=== PATIENT | male | born 1950 | race Caucasian/White ===

== ENCOUNTER 2022-07-12 12:05 | Inpatient (IN) | payer MEDICARE, MEDICAID ==
[~2022-07-12] VITALS: Ht 188 cm; Wt 99.8 kg
[2022-07-12 05:45] VITALS: BP 106/68
--- NOTE | 2022-07-12 12:15 | NUR ---
BIB PA FRM CORRECTION C/O BILATERAL ELBOW PAIN S/O GLF YESTERDAY. PT ALSO C/O COUGH AND CONGESTION X 2 DAYS. PLACED ON BED, AAOX4, TACHPNEIC RR- 26 SATURATING AT 95%RA.
--- NOTE | 2022-07-12 12:32 | NUR ---
PATIENT TAKEN TO CT VIA ELIE
[2022-07-12] MEDS ORDERED: ATOR10TA PO (12:39)
[2022-07-12] MEDS ORDERED: ZOLP10TA2 PO (12:39)
[2022-07-12] MEDS ORDERED: POLY17PO4 PO (12:39)
[2022-07-12] MEDS ORDERED: ASPI-1169 PO (12:39)
[2022-07-12] MEDS ORDERED: TYL2T PO (12:39)
[2022-07-12] MEDS ORDERED: CELE-85 PO (12:39)
[2022-07-12] MEDS ORDERED: PANT40TA2 PO (12:39)
[2022-07-12] MEDS ORDERED: MAGN400O6 PO (12:39)
[2022-07-12] MEDS ORDERED: ACET-868 PO (12:39)
[2022-07-12] MEDS ORDERED: GABA-532 PO (12:39)
[2022-07-12] MEDS ORDERED: MAG30ORA PO (12:39)
[2022-07-12] MEDS ORDERED: PROM118S PO (12:39)
[2022-07-12] MEDS ORDERED: SENN-261 PO (12:39)
[2022-07-12] MEDS ORDERED: CLOZ200T PO (12:39)
[2022-07-12] MEDS ORDERED: CLOZ100T32 PO (12:39)
[2022-07-12] MEDS ORDERED: LEVO100T9 PO (12:39)
--- NOTE | 2022-07-12 13:00 | NUR ---
PET NUTRITION SPECIALIST AT BEDSIDE, SWAB FOR COVID19 AND RAPID INFLUENZA SENT TO LAB.
[2022-07-12 13:18] LABS: BASOPHILS % (AUTO) 0.3 % (0.0-2.0); HEMATOCRIT 37 % (39-51); HEMOGLOBIN 11.6 g/dL (13.5-17.5); LYMPHOCYTES # (AUTO) 1.3 K/uL (0.8-4.8); LYMPHOCYTES % (AUTO) 9.7 % (20.0-44.0); MEAN CORPUSCULAR HGB CONC 31 g/dl (31.0-36.0); MEAN CORPUSCULAR VOLUME 86 fL (80-96); MONOCYTES # (AUTO) 1.1 K/uL (0.1-1.30); MONOCYTES % (AUTO) 7.9 % (2.0-12.0); NEUTROPHILS # (AUTO) 11.3 K/uL (1.8-8.9); NEUTROPHILS % (AUTO) 82.1 % (43.0-81.0); PLATELET COUNT (AUTO) 225 K/uL (150-450); RED BLOOD CELL COUNT(AUTO) 4.29 MIL/uL (4.5-6.0); WHITE BLOOD COUNT (AUTO) 13.8 K/uL (4.3-11.0)
[2022-07-12 13:45] LABS: CREATININE 1.4 mg/dL (0.6-1.3); POTASSIUM 4.3 mmol/L (3.5-5.1)
--- NOTE | 2022-07-12 14:32 | NUR ---
COVID POSITIVE RESULT RELAYED BY OFFICER CAPTAIN, LAYLA ESPINO AWARE
[2022-07-12] MEDS ORDERED: IBUPROFEN 600 MG TABLET ONE (14:55)
--- NOTE | 2022-07-12 15:07 | NUR ---
MOVE SHEET SUBMITTED
--- NOTE | 2022-07-12 15:18 | NUR ---
[facility] PAGED
[2022-07-12] MEDS ORDERED: MAG HYDROX/AL HYDROX/SIMETH 30 ML UDC PO PRN (16:00)
[2022-07-12] MEDS ORDERED: ONDANSETRON HCL/PF 4 MG/2 ML VIAL IVP PRN (16:00)
[2022-07-12] MEDS ORDERED: IBUPROFEN 600 MG TABLET PO ONE (16:00)
[2022-07-12] MEDS ORDERED: MORPHINE SULFATE INJ 2 MG/ML DISP.SYRIN IV PRN (16:00)
[2022-07-12] MEDS ORDERED: MAGNESIUM HYDROXIDE 30 ML UDC PO PRN (16:00)
--- NOTE | 2022-07-12 16:05 | NUR ---
room 108
--- NOTE | 2022-07-12 16:59 | NUR ---
REPORT GIVEN TO AB WRIGHT ROOM 108 FOR SLIM
[2022-07-12] MEDS: IPRATROPIUM/ALBUTEROL INHALER IH SCH ×2 (18:00→23:47)
--- NOTE | 2022-07-12 18:59 | NUR ---
RN NOTE PATIENT ARRIVED FROM ED AT 1830. PATIENT IS AOX4, TELE READING AT THIS TIME SR 89. VITALS TAKEN: BP: 106/68, HR: 92. ORAL TEMP: 98.3. BREATHING ON 2L NC AT 92% RR: 20. IV ACCESS RW #20 SL. PICTURES TAKEN AND PLACED IN CHART. PATIENT BELONGINGS ACCOUNTED FOR. WILL ENDORSE CONTINUITY OF CARE TO GALLERY OR MUSEUM CURATOR NURSE.
[2022-07-12] MEDS: DEXAMETHASONE SOD PHOSPHATE 10 MG/ML VIAL IV SCH (19:06)
[2022-07-12] MEDS: GABAPENTIN 100 MG CAPSULE PO SCH (19:06)
--- NOTE | 2022-07-12 19:30 | NUR ---
PATIENT AWAKE. AOX4, ON TELE MONITOR READING SR AT THIS TIME. ON 2LPM VIA NC. IV ACCESS ON RW #20 ON SL. SAFETY MEASURES IN PLACE. WILL CONTINUE PLAN OF CARE.
[2022-07-12 20:00] VITALS: BP 114/67
[2022-07-12 20:33] LABS: BILIRUBIN,DIRECT 0.2 mg/dL (0.0-0.2); BILIRUBIN,TOTAL 0.6 mg/dL (0.2-1.0)
[2022-07-12] MEDS: CEFEPIME 2 GM in IV D5W 100 ML IV SCH (21:25)
[2022-07-12] MEDS: HEPARIN SODIUM, PORCINE 5000 UNITS/1 ML VIAL SQ SCH (21:26)
[2022-07-12] MEDS: ATORVASTATIN 10 MG TABLET PO SCH (21:27)
[2022-07-12] MEDS: CLOZAPINE 100 MG TABLET PO SCH (21:27)
[2022-07-13] VITALS: BP 120/69
--- NOTE | 2022-07-13 | NUR ---
Pt not in distress with an o2 sat of 88% to 89%, increased o2 level from 3 Lpm to 5 Lmp.
[2022-07-13 04:00] VITALS: BP 128/73
--- NOTE | 2022-07-13 04:45 | NUR ---
Pt resting comfortably and not in distress. No complaints with an o2 sat of 89%. Charge nurse informed. O2 level increased to 10 Lpm via simple mask as ordered.
[2022-07-13] MEDS: IPRATROPIUM/ALBUTEROL INHALER IH SCH ×4 (05:08→23:53)
--- NOTE | 2022-07-13 06:47 | NUR ---
PT ASLEEP AOX4, ON TELE MONITOR READING SR . ON 10LPM VIA SIMPLE MASK, OS SAT AT 95% AT THIS TIME. IV ACCESS ON RW #20 ON SL. DUE MEDS GIVEN ORDERED. NEEDS ATTENDED. SAFETY MEASURES MAINTAINED. WILL ENDORSE TO NEXT NURSE ON DUTY FOR CONTINUITY OF CARE.
[2022-07-13 07:18] LABS: BASOPHILS % (AUTO) 0.1 % (0.0-2.0); HEMATOCRIT 35 % (39-51); HEMOGLOBIN 11.5 g/dL (13.5-17.5); LYMPHOCYTES # (AUTO) 0.5 K/uL (0.8-4.8); MEAN CORPUSCULAR HGB CONC 33 g/dl (31.0-36.0); MEAN CORPUSCULAR VOLUME 84 fL (80-96); MONOCYTES # (AUTO) 0.5 K/uL (0.1-1.30); NEUTROPHILS # (AUTO) 6.3 K/uL (1.8-8.9); NEUTROPHILS % (AUTO) 85.9 % (43.0-81.0); PLATELET COUNT (AUTO) 229 K/uL (150-450); RED BLOOD CELL COUNT(AUTO) 4.15 MIL/uL (4.5-6.0); WHITE BLOOD COUNT (AUTO) 7.3 K/uL (4.3-11.0)
[2022-07-13] MEDS: PANTOPRAZOLE 40 MG TABLET.DR PO SCH (07:57)
[2022-07-13] MEDS: LEVOTHYROXINE SODIUM 100 MCG TABLET PO SCH (07:57)
[2022-07-13 07:58] LABS: ALBUMIN 3.1 g/dL (3.4-5.0); BILIRUBIN,TOTAL 0.6 mg/dL (0.2-1.0); CALCIUM, SERUM 7.9 mg/dL (8.5-10.1); MAGNESIUM 2.4 mg/dL (1.8-2.4); PHOSPHORUS 2.7 mg/dL (2.5-4.9); POTASSIUM 3.8 mmol/L (3.5-5.1); TOTAL PROTEIN, SERUM 6.7 g/dL (6.4-8.2)
[2022-07-13 08:00] VITALS: BP 125/72
[2022-07-13] MEDS: CEFEPIME 2 GM in IV D5W 100 ML IV SCH ×2 (08:06→21:02)
[2022-07-13] MEDS: DEXAMETHASONE SOD PHOSPHATE 10 MG/ML VIAL IV SCH (08:06)
[2022-07-13] MEDS: GABAPENTIN 100 MG CAPSULE PO SCH ×3 (08:06→16:14)
[2022-07-13] MEDS: SENNOSIDES 8.6 MG TABLET PO SCH (08:06)
[2022-07-13] MEDS: POLYETHYLENE GLYCOL 3350 17 GM POWD.PACK PO SCH (08:06)
[2022-07-13] MEDS: ASPIRIN 81 MG TAB.CHEW PO SCH (08:06)
[2022-07-13] MEDS: CLOZAPINE 100 MG TABLET PO SCH ×2 (08:08→21:07)
[2022-07-13] MEDS: HEPARIN SODIUM, PORCINE 5000 UNITS/1 ML VIAL SQ SCH ×2 (08:21→21:05)
--- NOTE | 2022-07-13 08:50 | NUR ---
HIGHWAY ADMINISTRATIVE ENGINEER OPENING NOTES PATIENT AWAKE, ALERT AND VERBALLY RESPONSIVE, NOTED ON SIMPLE MASK @10LPM NOTED 02 SAT 94%, NOTED AUDIBLE CRACKLES, NOT IN DISTRESS, DENIES ANY PAIN, ON TELE MONITOR READING ST HR 106, IV ACCESS ON RW NOTED DISLODGED, WILL INSERT A NEW ONE. URINAL AT THE BEDSIDE, SAFETY MEASURES MAINTAINED.CALL LIGHT WITHIN REACH, BED ALARM. NOTED LEFT ARM SLING NOTED INTACT. PLAN OF CARE ON GOING.
--- NOTE | 2022-07-13 09:38 | NUR ---
REGULATOR PIN INSERTER RN NOTES INFORMED DR. VILLASENOR PATIENT ON SIMPLE MASK 10L, MD ORDER TITRATE 02 TO MAINTAINED 02 SAT ABOVE 90%, CHANGED SIMPLE MASK TO NASAL CANNULA TO 5L NOTED 02 SAT 93-94%. PLAN OF CARE ONGOING.
[2022-07-13] MEDS: GUAIFENESIN 300 MG/15 ML UDC PO PRN (10:36)
[2022-07-13 12:00] VITALS: BP 109/73
[2022-07-13] MEDS: SCOPOLAMINE PATCH 1 MG/72HR TD SCH (13:04)
[2022-07-13] MEDS: ACETAMINOPHEN 325 MG TABLET PO PRN (16:33)
[2022-07-13 16:55] VITALS: BP 129/70
--- NOTE | 2022-07-13 16:58 | NUR ---
METAL REED TUNER NOTES ULTRASOUND OF BILATERL LE, RESULT RECEIVED, DR. CHARLES NOTIFIED, AWAITING FOR ORDERS. PLAN OF CARE CONTINUED.
--- NOTE | 2022-07-13 18:25 | NUR ---
DEPUTY DIRECTOR OF NURSING NOTES DR. OLIVIER NOTIFIED OF THE ULTRASOUND WITH ORDER TO CONTINUE HEPARIN NOTED AND CARRIED OUT.
--- NOTE | 2022-07-13 18:39 | NUR ---
TILESETTER NOTES CALLED XRAY, TO FOLLOW UP PT NEEDS TO GO TO CT, PER REGULATORY ATTORNEY, THEY'RE BUSY WITH ER PATIENTS AND WILL TRY TO CALL BACK AGAIN LATER.
--- NOTE | 2022-07-13 18:40 | NUR ---
LADLE HANDLER CLOSING NOTES PATIENT AWAKE, ALERT AND VERBALLY RESPONSIVE, NOTED ON 5L VIA NASAL CANNULA SATING AT 94-95%, NOT IN DISTRESS, NO SHORTNESS OF BREATH, CRACKLES STILL NOTED., DENIES ANY PAIN. IV ACCESS ON RIGHT FOREARM NOTED PATENT AND INTACT, FLUSHES WELL. URINAL AT THE BEDSIDE, SAFETY MEASURES MAINTAINED.CALL LIGHT WITHIN REACH, BED ALARM. NOTED LEFT ARM SLING NOTED INTACT.WILL ENDORSE TO NIGHT NURSE FOR SLIM. Addendum: 07/13/22 at 1927 by TILA RODRIGUEZ RN RECHECK TEMP AFTER GIVING TYLENOL 99.1, ENDORSE TO STEAM BOX OPERATOR NURSE
--- NOTE | 2022-07-13 19:30 | NUR ---
PT ASLEEP, EASILY AWAKEN BY CALLING HIS NAME. A/OX4, ON 02 VIA NC AT 6LPM, NOTED AUDIBLE CRACKLES, NOT IN DISTRESS, DENIES ANY PAIN, ON TELE MONITOR READING SR, HR AT 98, IV ACCESS ON RFA #22G ON SL. URINAL AT THE BEDSIDE, SAFETY MEASURES IN PLACE. WILL CONTINUE PLAN OF CARE.
[2022-07-13 20:00] VITALS: BP 132/80
[2022-07-13] MEDS: ATORVASTATIN 10 MG TABLET PO SCH (21:08)
[2022-07-14] VITALS: BP 125/73
[2022-07-14 04:00] VITALS: BP 138/73
--- NOTE | 2022-07-14 06:55 | NUR ---
PT ASLEEP, EASILY AWAKEN BY CALLING HIS NAME. A/OX4, ON 02 VIA NC AT 5LPM, NOTED AUDIBLE CRACKLES, NOT IN DISTRESS, NO SOB AND DENIES ANY PAIN, ON TELE MONITOR READING SR, HR AT 98, IV ACCESS ON RFA #22G ON SL. URINAL AT THE BEDSIDE. DUE MEDS GIVEN ORDERED. SAFETY MEASURES MAINTAINED. WILL ENDORSE TO NEXT NURSE ON DUTY FOR CONTINUITY OF CARE.
[2022-07-14 07:43] LABS: ALBUMIN 2.7 g/dL (3.4-5.0); BILIRUBIN,DIRECT 0.1 mg/dL (0.0-0.2); BILIRUBIN,TOTAL 0.4 mg/dL (0.2-1.0); TOTAL PROTEIN, SERUM 6.5 g/dL (6.4-8.2)
[2022-07-14 08:00] VITALS: BP 120/76
[2022-07-14] MEDS: CEFEPIME 2 GM in IV D5W 100 ML IV SCH ×2 (08:13→21:01)
[2022-07-14] MEDS: ASPIRIN 81 MG TAB.CHEW PO SCH (08:13)
[2022-07-14] MEDS: GABAPENTIN 100 MG CAPSULE PO SCH ×3 (08:13→16:11)
[2022-07-14] MEDS: PANTOPRAZOLE 40 MG TABLET.DR PO SCH (08:14)
[2022-07-14] MEDS: CLOZAPINE 100 MG TABLET PO SCH (08:14)
[2022-07-14] MEDS: LEVOTHYROXINE SODIUM 100 MCG TABLET PO SCH (08:14)
[2022-07-14] MEDS: SENNOSIDES 8.6 MG TABLET PO SCH (08:14)
[2022-07-14] MEDS: POLYETHYLENE GLYCOL 3350 17 GM POWD.PACK PO SCH (08:14)
[2022-07-14] MEDS: HEPARIN SODIUM, PORCINE 5000 UNITS/1 ML VIAL SQ SCH ×2 (08:23→21:04)
--- NOTE | 2022-07-14 08:30 | NUR ---
FIRE ALARM DISPATCHER OPENING NOTES PATIENT AWAKE, ALERT AND VERBALLY RESPONSIVE, NOTED ON 2L VIA NASAL CANNULA TOLERATING WELL, NOT IN DISTRESS, NO SHORTNESS OF BREATH. DENIES ANY PAIN. IV ACCESS ON RIGHT FOREARM NOTED PATENT AND INTACT, FLUSHES WELL. URINAL AT THE BEDSIDE, SAFETY MEASURES MAINTAINED.CALL LIGHT WITHIN REACH, BED ALARM. NOTED LEFT ARM SLING NOTED INTACT.PLAN OF CARE CONTINUED.
[2022-07-14] MEDS: DEXAMETHASONE SOD PHOSPHATE 10 MG/ML VIAL IV SCH (08:41)
--- NOTE | 2022-07-14 09:55 | NUR ---
WOUND CARE CONSULT: REVIEWED CHART, NURSING DOCUMENTATION AND PHOTO WHICH INDICATES BILATERAL KNEE DISCOLORATION, PRESENT ON ADMISSION. CURRENT EDDIE SCORE IS 19. NURSING STAFF TO OBSERVE SKIN DAILY. MD IN AGREEMENT WITH PLAN OF CARE.
--- NOTE | 2022-07-14 10:00 | NUR ---
IT ENGINEER NOTES NOTED PATIENT RIGHT FOREAM PIV WAS REMOVED DUE TO PATIENT KEEP MOVING HIS ARMS, INFORMED MD WITH NEW ORDER FOR MIDLINE INSERTION, NOTED AND CARRIED OUT. INFORMED CHARGE NURSE AND COAL DIGGER. TESS MIDLINE WAS PLACED. NOTED PATENT AND INTACT, FLUSHES WELL.PLAN OF CARE CONTINUED.
[2022-07-14 12:00] VITALS: BP 146/74
[2022-07-14] MEDS: IPRATROPIUM/ALBUTEROL INHALER IH SCH ×3 (12:00→17:06)
[2022-07-14] MEDS: GUAIFENESIN 300 MG/15 ML UDC PO PRN (12:16)
[2022-07-14 16:00] VITALS: BP 117/87
[2022-07-14] MEDS: ACETAMINOPHEN 325 MG TABLET PO PRN (16:12)
--- NOTE | 2022-07-14 18:09 | NUR ---
PROVIDER NETWORK MANAGER CLOSING NOTES PATIENT AWAKE, ALERT AND VERBALLY RESPONSIVE, NOTED ON 2L VIA NASAL CANNULA SATING AT 97%, NOT IN DISTRESS, NO SHORTNESS OF BREATH. DENIES ANY PAIN. TESS MIDLINE NOTED PATENT AND INTACT, FLUSHES WELL. COVID ISOLATION CONTINUED. NOTED LEFT ARM SLING NOTED INTACT.ON TELE MONITORING WITH SR 79. WILL ENDORSE TO NIGHT NURSE FOR SLIM.
[2022-07-14] MEDS: ATORVASTATIN 10 MG TABLET PO SCH (21:02)
[2022-07-14 21:20] VITALS: BP 125/72
[2022-07-15] VITALS: BP 130/84
[2022-07-15] MEDS: CLOZAPINE 100 MG TABLET PO SCH ×3 (01:26→22:16)
[2022-07-15] MEDS: ALBUTEROL SULFATE 8 GM HFA.AER.AD IH PRN ×2 (01:30→06:40)
[2022-07-15 04:00] VITALS: BP 136/73
[2022-07-15] MEDS: CELECOXIB 100 MG CAPSULE PO PRN ×2 (06:42→23:23)
[2022-07-15] MEDS: IPRATROPIUM/ALBUTEROL INHALER IH SCH ×4 (06:58→22:31)
[2022-07-15] MEDS: CEFEPIME 2 GM in IV D5W 100 ML IV SCH ×2 (07:57→22:09)
[2022-07-15 08:00] VITALS: BP 142/74
[2022-07-15] MEDS: LEVOTHYROXINE SODIUM 100 MCG TABLET PO SCH (08:21)
[2022-07-15] MEDS: DEXAMETHASONE SOD PHOSPHATE 10 MG/ML VIAL IV SCH (08:21)
[2022-07-15] MEDS: PANTOPRAZOLE 40 MG TABLET.DR PO SCH (08:21)
[2022-07-15] MEDS: POLYETHYLENE GLYCOL 3350 17 GM POWD.PACK PO SCH (08:21)
[2022-07-15] MEDS: ASPIRIN 81 MG TAB.CHEW PO SCH (08:21)
[2022-07-15] MEDS: SENNOSIDES 8.6 MG TABLET PO SCH (08:21)
[2022-07-15] MEDS: GABAPENTIN 100 MG CAPSULE PO SCH ×3 (08:21→17:38)
[2022-07-15] MEDS: HEPARIN SODIUM, PORCINE 5000 UNITS/1 ML VIAL SQ SCH ×2 (08:23→22:19)
[2022-07-15 12:00] VITALS: BP 130/75
[2022-07-15 16:00] VITALS: BP 125/73
--- NOTE | 2022-07-15 19:00 | NUR ---
LIVE IN COMPANION CLOSING NOTES PATIENT AWAKE, ALERT AND VERBALLY RESPONSIVE, BREANA GUTIÉRREZ CALLED AND SAID TAKE TH NC 2 LITER OFF AND MONITOR THE PATIENT ON ROOM AIR, HE IS GOING TO BE DISCHARGE TOMORROW. PATIENT WAS SATTING 94-95% ON ROOM AIR. NOT IN DISTRESS, NO SHORTNESS OF BREATH. DENIES ANY PAIN. TESS MIDLINE NOTED PATENT AND INTACT, FLUSHES WELL. COVID ISOLATION CONTINUED. NOTED LEFT ARM SLING NOTED INTACT.ON TELE MONITORING WITH SR 78. WILL ENDORSE TO CARGO AND CONTAINER INSPECTOR NURSE FOR SLIM.
[2022-07-15 20:00] VITALS: BP 123/77
--- NOTE | 2022-07-15 20:00 | NUR ---
CLAIM AUDITOR OPENING NOTES PATIENT AWAKE, ALERT AND VERBALLY RESPONSIVE, NOTED ON R/A SATING AT 96%, NOT IN DISTRESS, NO SHORTNESS OF BREATH, DENIES ANY PAIN. IV ACCESS ON RIGHT FOREARM NOTED PATENT AND INTACT, FLUSHES WELL. URINAL AT THE BEDSIDE, SAFETY MEASURES MAINTAINED.CALL LIGHT WITHIN REACH, BED ALARM. NOTED LEFT ARM SLING NOTED INTACT.WILL CONTINUE TO MONITOR PTS.
[2022-07-15] MEDS: ATORVASTATIN 10 MG TABLET PO SCH (22:16)
[2022-07-16] VITALS: BP_SYST 134; BP_DIAS 64; BP_DIAS 77
[2022-07-16] MEDS: IPRATROPIUM/ALBUTEROL INHALER IH SCH ×3 (00:50→12:05)
[2022-07-16 04:00] VITALS: BP 137/85
--- NOTE | 2022-07-16 06:25 | NUR ---
telecasting technician notes Pts remain in bed awake a/ox4 Ambulatory on r/a sating 96% no sob no distress noted . will endorse to rn day shift for continuity of care.
[2022-07-16 07:31] LABS: BILIRUBIN,DIRECT 0.1 mg/dL (0.0-0.2); BILIRUBIN,TOTAL 0.5 mg/dL (0.2-1.0); TOTAL PROTEIN, SERUM 6.9 g/dL (6.4-8.2)
[2022-07-16] MEDS: LEVOTHYROXINE SODIUM 100 MCG TABLET PO SCH (07:52)
[2022-07-16] MEDS: PANTOPRAZOLE 40 MG TABLET.DR PO SCH (07:52)
[2022-07-16 08:00] VITALS: BP 108/61
[2022-07-16] MEDS: SENNOSIDES 8.6 MG TABLET PO SCH (08:18)
[2022-07-16] MEDS: CEFEPIME 2 GM in IV D5W 100 ML IV SCH (08:18)
[2022-07-16] MEDS: ASPIRIN 81 MG TAB.CHEW PO SCH (08:18)
[2022-07-16] MEDS: CLOZAPINE 100 MG TABLET PO SCH (08:18)
[2022-07-16] MEDS: POLYETHYLENE GLYCOL 3350 17 GM POWD.PACK PO SCH (08:18)
[2022-07-16] MEDS: GABAPENTIN 100 MG CAPSULE PO SCH ×2 (08:19→13:35)
[2022-07-16] MEDS: DEXAMETHASONE SOD PHOSPHATE 10 MG/ML VIAL IV SCH (08:19)
[2022-07-16] MEDS: HEPARIN SODIUM, PORCINE 5000 UNITS/1 ML VIAL SQ SCH (08:20)
[2022-07-16] MEDS ORDERED: DEXA4TAB PO (09:11)
[2022-07-16] MEDS ORDERED: LEVO750T46 PO (09:11)
[2022-07-16] MEDS: SCOPOLAMINE PATCH 1 MG/72HR TD SCH (13:35)
[2022-07-16] MEDS: ALBUTEROL SULFATE 8 GM HFA.AER.AD IH PRN (13:36)
--- NOTE | 2022-07-16 14:30 | NUR ---
RN CLOSING NOTE PATIENT STABLE AMBULATORY ALERT ORIENTED X4 RAPID COVID TEST POSITIVE DONE TODAY BUT THE F[facility] G[facility] MANNER ACCEPTED HIM IS. AND PATIENT WAS TAKEN TO THE FINE GOLD MANNER WITH ELIE. PATIENT'S VITALS WNL. MIDLINE WAS REMOVED BEFORE PATIENT LEAVES HOME MEDICATION WERE ALL PO. ALL BELONGING GIVEN PATIENT SIGNED THE FORM AND ALSO THE DISCHARGE FORM ALL SIGNED FORMS PLACED IN ROSITA'S CHART.
== END 2022-07-16 15:00 | DRG 177 ==
LOC: ER 12:10 → TELE1 17:43
PROVIDERS: ADMIT Internal Medicine; ATTEND Internal Medicine
PROC: 3E0333Z Introduction of Anti-inflammatory into Peripheral Vein, Percutaneous Approach (ICD-10-PCS; principal; 2022-07-12)
DX: U07.1 COVID-19 (principal); J12.82 Pneumonia due to coronavirus disease 2019; J15.6 Pneumonia due to other Gram-negative bacteria; N17.0 Acute kidney failure with tubular necrosis; J96.91 Respiratory failure, unspecified with hypoxia; J98.11 Atelectasis; I82.812 Embolism and thrombosis of superficial veins of left lower extremity; D63.8 Anemia in other chronic diseases classified elsewhere; F29 Unspecified psychosis not due to a substance or known physiological condition; E88.09 Other disorders of plasma-protein metabolism, not elsewhere classified; E83.51 Hypocalcemia; E03.9 Hypothyroidism, unspecified; E78.00 Pure hypercholesterolemia, unspecified; S52.045A Nondisplaced fracture of coronoid process of left ulna, initial encounter for closed fracture; W19.XXXA Unspecified fall, initial encounter; Y93.89 Activity, other specified; Y92.098 Other place in other non-institutional residence as the place of occurrence of the external cause; M48.02 Spinal stenosis, cervical region; Z79.82 Long term (current) use of aspirin; M19.90 Unspecified osteoarthritis, unspecified site; Z79.899 Other long term (current) drug therapy
CPT/HCPCS: 36410; 36415; 70450-TC; 71045-TC; 71250-TC; 72125-TC; 73080-TC; 80048-TC; 80053-TC; 80076-TC; 82247-TC; 82248-TC; 83605-TC; 83735-TC; 84100-TC; 85025-TC; 85378-TC; 86140-TC; 87040-TC; 87081-TC; 93970-TC; C9803; G0378; J0692; J1100; J1644; J7030; J7050; J7060